=== PATIENT | female | born 1985 | race Caucasian/White ===

== ENCOUNTER 2017-06-11 11:42 | Emergency (ER) | payer BC ==
[2017-02-12 09:25] VITALS: BMI 41.4
--- NOTE | 2017-06-11 17:22 | OBHP ---
Datetime: 06/11/2017 12:49 IP Adm Impression: , intrauterine ; No Active Labor IP Chief Complaint Other: Passed mucous plug IP Admit Plan: Discharge home Admit Comment, IP Provider: 31 y.o , LMP 10/30/16, ARIELA 08/06/17, EGA 32 weeks, presents for silva luationof possibly passing mucous plug. Noticed "bugga" at approximately 0845 hours. "I felt relief a fter" - low back pain; slight increase in vaginal/pelvic pressusre. Had sexual intercourse last night . (+) AFM; denies LOF (clear), VB, Ctx. care: Dr. Mag Byrne: per patient, unremarkable to date, yet has been having serial ultrasounds - doesn't know why. 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 No h/o intubations or ICU admissions. PSH: denies NKDA Meds: PNV - QD; proventil inhaler, as needed Soc Hx: denies tobacco, illicit drug or EtOH use. x 3 years; lives with and son. 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 Fam Hx: Mother alive 56 - HTN. Father alive 60 - DM. P.E.: as above. Midly obese, in NAD. Awake, alert, oriented to time, person and place. Pleasant a nd cooperative. Accompanied by her mother Assessment: 31 y.o. P1, 32 weeks. No evidenc of ROM. It was explained to patient, there is no def initive way to confirm or refute the passing of her mucous plug. It is not uncommon after the passing of same one goes into labor within 1 to 2 weeks, on the average. To this end, patient counseled to p ay particular attention to any signs of PTL; especially re: distinguishing between Ctx and move ment. When in doubt, come in for evaluation. It was also discussed, the excessive vaginal discharge she experienced could have been a mixture of her 's seminal and her vaginal fluids. Patient e xpressed an understanding; no further concerns or questions were raised. Plan: 1) Discharge home 2) Consider abstaining from sexual intercourse until 37+ weeks 3) Keep appointment, 06/23 17 4) Reviewed S/S PTL 5) Continue PNV - as per, and discusssed with, Dr. Byrne. Pelvic Type - PN: Adequate Extremities - PN: Normal Abdomen - PN: Normal Back - PN: Normal Breast - PN: Not Done Lungs - PN: Normal Heart - PN: Normal Thyroid - PN: Not Done Neurologic - PN: Normal HEENT - PN: Normal General - PN: Normal FHR - Baseline A Provider: 130 Contraction Comments Provider: none Comments, ACOG Physical Exam: Abdomen: Gravid. Soft. Non tender in all quadrants Perineum: dry Spec: pasty white, particulate vaginal discharge. No pooling; nitrazine negative. No odor. No ble eding. No mucoid discharge appreciated All other systems reviewed and are negative Gestation - Est Wks by US: 32.0 EGA AdmitDate IP: 32.0 IP Chief Complaint: Other NICHD Variability Prov Fetus A: Moderate 6-25bpm NICHD Accel Fetus A IP Provider: [id number] FHR Category Provider Fetus A: Category I NICHD Decel Fetus A IP Provider: None Dilatation, Provider: 0 Effacement, Provider: 0 Station, Provider: high Genitourinary Exam: Normal DTRs - PN: Not Done
[2017-06-11 19:13] VITALS: BP 112/69; PULSE 82; RESP 20; TEMP 97.6; O2SAT 96
== END 2017-06-11 13:05 | disposition home or self-care (01) ==
LOC: C.EROB 11:42
DX: O26.893 Other specified pregnancy related conditions, third trimester (principal); Z3A.32 32 weeks gestation of pregnancy

== ENCOUNTER 2017-07-16 15:32 | Emergency (ER) | payer BC ==
[2017-07-16 17:08] VITALS: BMI 40.9
--- NOTE | 2017-07-16 17:24 | OBHP ---
Datetime: 07/16/2017 17:20 IP Adm Impression: Term, intrauterine IP Chief Complaint Other: nst/bb IP Admit Plan: Discharge home Admit Comment, IP Provider: at 37weeks for nst/bpp due to dec fh in office, no ctxs, vb, lof+fm . obhx 1 x pmh den med pnv all nkda psh de soch de nst 130 mod mercedes slime bpp 10/29 a/p at 37weeks nst/bb dc home labor given po hy call pmd to make an appointment Pelvic Type - PN: Adequate Extremities - PN: Normal Abdomen - PN: Normal Back - PN: Normal Breast - PN: Normal Lungs - PN: Normal Heart - PN: Normal Thyroid - PN: Normal Neurologic - PN: Normal HEENT - PN: Normal General - PN: Normal FHR - Baseline A Provider: 120 Contraction Comments Provider: none Vital Signs Provider: Reviewed; Within Normal Limits NICHD Variability Prov Fetus A: Moderate 6-25bpm NICHD Accel Fetus A IP Provider: [id number] FHR Category Provider Fetus A: Category I Genitourinary Exam: Normal DTRs - PN: Normal Datetime: 06/11/2017 12:49 EGA AdmitDate IP: 32.0
--- NOTE | 2017-07-16 17:25 | US ---
PROCEDURE: OB Pelvic Ultrasound HISTORY: LMP: 10/30/2016 COMPARISON: None available. FINDINGS: UTERUS: There is a single intrauterine live with ultrasound estimated gestational age of 37 weeks. Heart rate: 123 bpm. age (Ultrasound estimated): 37 weeks 4 days 2 weeks 4 days Amniotic Fluid index: 14.07 centimeter Date of delivery (Ultrasound estimated) : 08/02/2017. Estimated weight by ultrasound is 3263 gram 489.4 gram. Biophysical profile: Biophysical profile is 8 of 8 with 2 for the breathing, 2 for the body movement and 2 for the tone and 2 for the amniotic fluid. Placenta it is noted at the anterior fundal wall. . CERVIX: Measures 3.6 cm. Long and closed. No cervical abnormality seen. RIGHT OVARY: Was not visualized. LEFT OVARY: Was not visualized. FREE FLUID: None. OTHER FINDINGS: None. IMPRESSION: Single intrauterine live noted in cephalic presentation at the time of this study. The ultrasound estimated gestational age is 37 weeks 4 days 2 weeks 4 days. Estimated date of delivery by ultrasound is 08/02/2017. Biophysical profile is 8 of 8. Irregular heartbeat is noted during the exam.
--- NOTE | 2017-07-16 17:27 | OBDCSUM ---
Datetime: 07/16/2017 17:23 Discharged to, Provider: Home Follow up at, Provider: Dr. Byrne Disch Instr Activity: Normal activity Disch Instr Diet: Regular Discharge Time: 07/16/2017 17:24 Follow up in weeks, Provider: call Dr. Byrne's office to schedule follow up visit Disch Referrals: None Discharge Comment, Provider: carola home labor given po hy call pmd to make an appointment Discharge Diagnosis Prov Other: nst/bpp 37wee
[2017-07-16 21:37] VITALS: BP 101/71; PULSE 87; O2SAT 97
== END 2017-07-16 17:30 | disposition home or self-care (01) ==
LOC: C.EROB 15:32
DX: Z36.89 Encounter for other specified antenatal screening (principal)

== ENCOUNTER 2017-07-24 06:55 | Inpatient (IN) | payer BC ==
[2017-07-24] MEDS ORDERED: Lactated Ringer's 1,000 ML IV SCH (07:45)
--- NOTE | 2017-07-24 07:45 | OBHP ---
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, fibroids, ovarian cyst, , sti PMH: denies PSH: denies FHX: non contriutory SHX: negative etoh/tobacco/drugs MEDS: pnv NKDA A/P @ 38.1 wks GA in labor -admit to L+D -npo, ivf -admission labs -cont tooc adn efm -analgesia Pelvic Type - PN: Adequate Extremities - PN: Normal Abdomen - PN: Normal Back - PN: Normal Breast - PN: Normal Lungs - PN: Normal Heart - PN: Normal Thyroid - PN: Normal Neurologic - PN: Normal HEENT - PN: Normal General - PN: Normal Presentation-Admit: Vertex FHR - Baseline A Provider: 125 Membranes, Provider: Intact Contraction Comments Provider: q 8 min Gestation - Est Wks by US: 38.1 IP Hx Assessment: The History has been Reviewed and is Current EGA AdmitDate IP: 38.1 Vital Signs Provider: Reviewed; Within Normal Limits IP Chief Complaint: Uterine contractions NICHD Variability Prov Fetus A: Moderate 6-25bpm FHR Category Provider Fetus A: Category I NICHD Decel Fetus A IP Provider: None Dilatation, Provider: 3-4 Effacement, Provider: 30 Station, Provider: -3 Genitourinary Exam: Normal DTRs - PN: Normal
--- NOTE | 2017-07-24 07:59 | OBADHP ---
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, fibroids, ovarian cyst, , sti PMH: denies PSH: denies FHX: non contriutory SHX: negative etoh/tobacco/drugs MEDS: pnv NKDA A/P @ 38.1 wks GA in labor -admit to L+D -npo, ivf -admission labs -cont tooc adn efm -analgesia Pelvic Type - PN: Adequate Extremities - PN: Normal Abdomen - PN: Normal Back - PN: Normal Breast - PN: Normal Lungs - PN: Normal Heart - PN: Normal Thyroid - PN: Normal Neurologic - PN: Normal HEENT - PN: Normal General - PN: Normal Presentation-Admit: Vertex FHR - Baseline A Provider: 125 Membranes, Provider: Intact Contraction Comments Provider: q 8 min Gestation - Est Wks by US: 38.1 IP Hx Assessment: The History has been Reviewed and is Current Vital Signs Provider: Reviewed; Within Normal Limits IP Chief Complaint: Uterine contractions NICHD Variability Prov Fetus A: Moderate 6-25bpm FHR Category Provider Fetus A: Category I NICHD Decel Fetus A IP Provider: None Dilatation, Provider: 3-4 Effacement, Provider: 30 Station, Provider: -3 Genitourinary Exam: Normal DTRs - PN: Normal EGA AdmitDate IP: 38.1 IP Adm Impression: Term, intrauterine IP Admit Plan: Admit to unit Datetime: 07/16/2017 17:20 IP Chief Complaint Other: nst/bb NICHD Accel Fetus A IP Provider: [id number] Datetime: 06/11/2017 12:49 Comments, ACOG Physical Exam: Abdomen: Gravid. Soft. Non tender in all quadrants Perineum: dry Spec: pasty white, particulate vaginal discharge. No pooling; nitrazine negative. No odor. No ble eding. No mucoid discharge appreciated All other systems reviewed and are negative
[2017-07-24] MEDS ORDERED: Penicillin G 5 Million Unit Vial IVPB ONE (08:00)
[2017-07-24 08:31] LABS: BASO % 0.5 % (0.0-2.0); EOS # 0.1 K/uL (0.0-0.7); HEMOGLOBIN 12.8 g/dL (11.0-16.0); LYMPH # 1.6 K/uL (1.0-4.3); LYMPH % 16.6 % (20.0-40.0); MEAN CELL VOLUME 86.9 fL (81.0-99.0); MEAN CORPUSCULAR HEMOGLOBIN 29.9 pg (27.0-31.0); MEAN CORPUSCULAR HGB CONC 34.4 g/dL (33.0-37.0); MEAN PLATELET VOLUME 8.6 fL (7.2-11.7); MONO # 0.5 K/uL (0.0-0.8); MONO % 5.8 % (0.0-10.0); NEUT # 7.2 K/uL (1.8-7.0); NEUT % 76.1 % (50.0-75.0); NRBC % 0.1 % (0.0-2.0); RBC 4.29 Mil/uL (3.80-5.20); RED CELL DISTRIBUTION WIDTH 13.3 % (11.5-14.5); WHITE BLOOD COUNT 9.5 K/uL (4.8-10.8)
[2017-07-24 08:55] LABS: SQUAMOUS EPITHIAL 2 /hpf (0-5); URINE BILIRUBIN NEGATIVE (NEGATIVE); URINE BLOOD 1+ (NEGATIVE); URINE CLARITY Clear (Clear); URINE COLOR Yellow (YELLOW); URINE GLUCOSE (UA) NORMAL (Normal); URINE LEUKOCYTE ESTERASE NEG Leu/uL (Negative); URINE PROTEIN NEGATIVE (NEGATIVE); URINE UROBILINOGEN NORMAL mg/dL (0.2-1.0)
[2017-07-24 09:38] LABS: ALB/GLOB RATIO 1.1 (1.0-2.1); ALBUMIN 3.5 g/dL (3.5-5.0); ALT/SGPT 10 U/L (9-52); AST/SGOT 28 U/L (14-36); BLOOD UREA NITROGEN 15 mg/dL (7-17); CALCIUM 9.4 mg/dl (8.6-10.4); GFR AFRICAN-AMERICAN > 60; GFR NON-AFRICAN AMERICAN > 60; HEPATITIS B SURFACE AG Negative (NEGATIVE)
[2017-07-24] MEDS ORDERED: Oxytocin 30 UNIT 30 UNITS/500 ML BAG IV ONE (11:25)
[2017-07-24] MEDS ORDERED: Oxytocin 30 UNIT 30 UNITS/500 ML BAG IV SCH (11:30)
[2017-07-24] MEDS ORDERED: Fentanyl/Bupivacaine HCl 250 ML EPI ONE (13:17)
[2017-07-24] MEDS ORDERED: Bupivacaine HCl 0.25% PF (30 ml) Inj ONE (13:17)
[2017-07-24] MEDS ORDERED: ceFAZolin IV 2 gm in Dextrose 2 GM/50 ML BAG IVPB ONE (19:48)
[2017-07-24] MEDS ORDERED: ceFAZolin 1 gm in NS 2 GM/200 ML BAG IVPB ONE (19:50)
[2017-07-24] MEDS ORDERED: Oxycodone/Acetaminophen 5/325 mg Tab PO PRN ×2 (20:21→20:33)
--- NOTE | 2017-07-24 20:30 | OBPN ---
Datetime: 07/24/2017 19:26 IP Progress Impression: Normal progression of labor IP Procedures: Artificial ROM IP Progress Plan: Continue present management Membranes, Provider: Ruptured Amniotic Fluid Color, Provider: Clear Contraction Comments Provider: 3 FHR - Baseline A Provider: 130 IP Progress Note Comment: @ 38.1 wks GA admitted for labor with nromal progessin augmented with cytotec followe by pitocin followed by AROM, shortly after cat II drackign not imtpoving, bedside so no conssitent with ehart rate abnroalties despeit dc pitoicn, oxygen, left latreal. pt transpro navid to OR. VE 10/100/0 and heart rate improved with decles, consent tiven for Right mediolater and va cumn delivery FHR Category Provider Fetus A: Category I NICHD Variability Prov Fetus A: Moderate 6-25bpm Dilatation, Provider: 7 NICHD Decel Fetus A IP Provider: None Datetime: 07/24/2017 07:39 Gestation - Est Wks by US: 38.1 Presentation-Admit: Vertex Vital Signs Provider: Reviewed; Within Normal Limits Effacement, Provider: 30 Station, Provider: -3 Datetime: 07/16/2017 17:20 NICHD Accel Fetus A IP Provider: [id number]
--- NOTE | 2017-07-24 20:32 | OBDS ---
DELIVERY PERSONNEL Delivery Doctor: Ashley Byrne MD Scrub Nurse: Cecilia Balbuena Ct Scan Special Procedures Technologist: Mildred Wolf RN Anesthesiologist: MATERNAL INFORMATION Delivery Anesthesia: Epidural Medications in Delivery: Pitocin 20units IV in 1000LR; Methergine 0.2 mg IM by Estimated Blood Loss (ml): 500 Placenta Cultured: Yes Maternal Complications: None Provider Comments: pt with category II tracing 8cm, transported to OR , reexamiend . pt was pushign, verbal consent given for right mediolasteral epistomy, adn vaucm . vacumn applied, no cervi x, on sagitall suture, 1 pull, head delivered in OP presentation, no nuchal cord noted, aturamti, rn managed care netaou delivey rof anterio follwoed by marv ojeda followed by zakia rof body. both oral and nsal passages of baby bulb suctined. ubmicls cord clamped adn cut. baby handed to awaiting pediatrici an. cord blodoa dn cord gases colelcted and sent x 2. spontaenous delivery of intact placenta wtih me mbrnes. fundus firm, lower uteiren segememe boggy. biman massage, pitocn given, massage contined, met hergine IM x 1 givne. good hemostais. right mediolateral epistormy repaired with 2-0 adn 3-0 chormic , Good hemostaiion. no compliatin live male infant agpar 9,9 weight of 7lbs 8ounces ebl 500 ml LABOR SUMMARY EDC: 08/06/2017 00:00 No. Babies in Womb: 1 Attempted: No Labor Anesthesia: Epidural LABOR INFORMATION Reason for Induction: Not Applicable Cervical Ripening Agents: Cytotec @ Oxytocin: Augmentation Group B Beta Strep: Positive (Annotations: 07/16/17) Antibiotics # of Doses: 3 Antibiotics Time of Last Dose: Pen G 2.5 MU IV @ 1610 Steroids Given: None Reason Steroids Not Administered: Not Applicable MEMBRANES Membranes Rupture Method: Artificial Rupture of Membranes: 07/24/2017 18:09 Length of Rupture (hrs): -10.67 Amniotic Fluid Color: Clear Amniotic Fluid Amount: Small Amniotic Fluid Odor: Normal STAGES OF LABOR Stage 3 hrs: 12 Stage 3 min: 4 VAGINAL DELIVERY Episiotomy: Right Mediolateral Laceration Extension: N/A Laceration Type: None Laceration Repair: Yes Laceration Repair Note: right mediolateral episotimy repaired Initial Vag Sponge Count: 25 Final Vag Sponge Count: 25 Initial Vag Sharps Count: 4 Final Vag Sharps Count: 4 Sponge Count Correct: Yes; Vaginal Sweep Performed Sharps Count Correct: Yes Count Comment: count with Dr. Byrne, Cecilia Balbuena, and Jesusita Hoover RN BABY A INFORMATION Delivery Date/Time: 07/24/2017 07:29 Method of Delivery: Vaginal Born in Route : No : N/A Forceps: N/A Vacuum Extraction: Successful Shoulder Dystocia : No ASSISTED DELIVERY BABY A Indication for Assisted Delivery: Non reassuring tracing Catheter Prior to Procedure: Patient on catheter Station Vacuum/Forcep Apply: +3 Position Vacuum/Forcep Apply: Direct Occipital Posterior Vacuum Number of Pulls: 1 Vacuum Number of PopOffs: 0 Vacuum Maximum Pressure Obtained: 40hg/cm Reduce Pressure btwn Ctx: No Vacuum Curriculum Development Manager: [place] II M style Mushroom Vaccuum Assist(MityVac) Total Time Vacuum Applied: 7 seconds SHOULDER DYSTOCIA BABY A Infant Delivery Date/Time: 07/24/2017 07:29 PRESENTATION/POSITION BABY A Presentation: Cephalic Cephalic Presentation: Vertex Vertex Position: Direct OP Breech Presentation: N/A PLACENTA INFORMATION BABY A Placenta Delivery Time : 07/24/2017 19:33 Placenta Method of Delivery: Spontaneous Placenta Status: Delivered SCORES BABY A Heart Rate 1 min: >100 bpm Resp Effort 1 min: Good Cry Reflex Irritability 1 min: Cough or Sneeze or Pulls Away Muscle Tone 1 min: Active Motion Color 1 min: Body [place], Extremities Blue Resuscitation Effort 1 min: N/A SCORE 1 MIN: 9 Heart Rate 5 min: >100 bpm Resp Effort 5 min: Good Cry Reflex Irritability 5 min: Cough or Sneeze or Pulls Away Muscle Tone 5 min: Active Motion Color 5 min: Body [place], Extremities Blue Resuscitation Effort 5 min: N/A SCORE 5 MIN: 9 INFANT INFORMATION BABY A Gestational Age at Delivery: 38.1 Gestational Status: Term Infant Outcome : Liveborn Infant Condition : Stable Infant Sex: Male IDENTIFICATION/MEDS BABY A ID Band Number: [id number] ID Band Location: Left Leg; Left Arm Sensor Applied: Yes Sensor Number: [id number] Sensor Location : Cord Clamp Vitamin K Given : Not Given Erythromycin Given: Not Given WEIGHT/LENGTH BABY A Infant Birthweight (gms): 3390 Weight (lb): 7 Weight (oz): 8 Infant Length Inches: 20.00 Infant Length cms: 50.8 CORD INFORMATION BABY A No. Cord Vessels: 3 Nuchal Cord : N/A Cord Blood Taken: Yes Infant Suction: Mouth; Nose ASSESSMENT BABY A Infant Complications: None Physical Findings at Delivery: Molding of the Head Respirations: Appears Normal Devil Tender/ALS Called : Yes Infant Care By: present at delivery Transferred To: Nursery
[2017-07-24 22:24] LABS: BASO # 0.1 K/uL (0.0-0.2); BASO % 0.5 % (0.0-2.0); EOS % 0.1 % (0.0-4.0); HEMOGLOBIN 11.7 g/dL (11.0-16.0); LYMPH # 0.6 K/uL (1.0-4.3); LYMPH % 3.1 % (20.0-40.0); MEAN CELL VOLUME 85.6 fL (81.0-99.0); MEAN CORPUSCULAR HEMOGLOBIN 28.8 pg (27.0-31.0); MEAN CORPUSCULAR HGB CONC 33.7 g/dL (33.0-37.0); MONO # 1.1 K/uL (0.0-0.8); MONO % 5.3 % (0.0-10.0); NEUT # 18.3 K/uL (1.8-7.0); PLATELET COUNT 181 K/uL (130-400); RBC 4.05 Mil/uL (3.80-5.20); RED CELL DISTRIBUTION WIDTH 13.2 % (11.5-14.5)
[2017-07-24 22:28] LABS: WHITE BLOOD COUNT 20.2 K/uL (4.8-10.8)
[2017-07-24 23:11] LABS: BANDS 2 % (0-2); EOSINOPHIL 1 % (0-4); LYMPHOCYTE 3 % (20-40); MONOCYTE 5 % (0-10); NEUTROPHIL 89 % (50-75); PLATELET ESTIMATE NORMAL (NORMAL); TOTAL CELLS COUNTED 100
[2017-07-24 23:12] LABS: ANISOCYTOSIS SLIGHT; HYPOCHROMIC SLIGHT; POIKILOCYTOSIS SLIGHT
[2017-07-25] MEDS: ceFAZolin 1 GM in Sodium Chloride 0.9% 100 ML IVPB SCH ×2 (03:21→11:11)
--- NOTE | 2017-07-25 06:53 | OBPPN ---
Datetime: 07/25/2017 06:44 PP Pain Prov: Within normal limits PP Nausea Prov: Denies PP Flatus Prov: Yes PP BM Prov: No PP Breasts Prov: Normal PP Heart Prov: Normal PP Lungs Prov: Normal PP Abdomen/Uterus Prov: Normal PP Lochia Prov: Normal PP Vulva/Perineum Prov: Normal PP CVA Tenderness Prov: Normal PP Extremities Prov: Normal PP C/S Incision Prov: Not Applicable PP Progress Prov: Normal PP Impression Prov: Normal progression PP Plan Prov: Continue present management PP Progress Note Prov: Pt seen and examiend and reporst pain controled with motrin. pt ambuaitng to bathroom, urinating without difficut, breast feeding,d herbert any heavy bleeding, fever, chils, naseu v omitng, cp, osb, lightheadness VSS PE GEN NAD AA Ox 3 RESP: CTAB?l CVS: RRR< +S1/S2 BREAST: Non tendner, non engourged b/ ABD: sofrt, NT, ND FUDUS: Firm, at levle of umbics VE: minaml lochia, non foul semlling EXT: no calft tendnress, negartive homans sign a/p s/p SNVD PPD #1 -pain manamgnet -f/u am cbc -necouarbe mabutin, and breast feeding IP PP Procedures: None Vital Signs Provider PP: Reviewed; Within Normal Limits
[2017-07-25 08:34] LABS: BASO # 0.1 K/uL (0.0-0.2); BASO % 0.3 % (0.0-2.0); EOS % 0.3 % (0.0-4.0); HEMOGLOBIN 10.5 g/dL (11.0-16.0); LYMPH # 1.2 K/uL (1.0-4.3); LYMPH % 7.7 % (20.0-40.0); MEAN CELL VOLUME 85.9 fL (81.0-99.0); MEAN CORPUSCULAR HEMOGLOBIN 29.2 pg (27.0-31.0); MEAN PLATELET VOLUME 8.4 fL (7.2-11.7); MONO % 5.9 % (0.0-10.0); NEUT # 13.8 K/uL (1.8-7.0); NEUT % 85.8 % (50.0-75.0); PLATELET COUNT 180 K/uL (130-400); RBC 3.61 Mil/uL (3.80-5.20); RED CELL DISTRIBUTION WIDTH 13.4 % (11.5-14.5); WHITE BLOOD COUNT 16.1 K/uL (4.8-10.8)
[2017-07-25 09:14] LABS: BASOPHIL 1 % (0-2); LYMPHOCYTE 8 % (20-40); MONOCYTE 5 % (0-10); NEUTROPHIL 86 % (50-75); TOTAL CELLS COUNTED 100
[2017-07-25 09:15] LABS: ANISOCYTOSIS SLIGHT; BURR CELLS SLIGHT; HYPOCHROMIC SLIGHT; PLATELET ESTIMATE NORMAL (NORMAL); POIKILOCYTOSIS SLIGHT; TARGET CELLS SLIGHT
[2017-07-25 09:17] VITALS: O2SAT 98
[2017-07-25] MEDS ORDERED: Benzocaine/Menthol 20%-0.5% Topical Spray (60 ml) EXT PRN (12:00)
--- NOTE | 2017-07-26 07:50 | OBDCSUM ---
Datetime: 07/26/2017 07:48 Discharged to, Provider: Home Follow up at, Provider: Dr Byrne Disch Instr Activity: Normal activity Disch Instr Diet: Regular Discharge Instructions, Provider: Routine instructions given Discharge Diagnosis, Provider: Term Delivered Discharge Time: 07/26/2017 15:00 Follow up in weeks, Provider: 6 weeks Disch Referrals: None Contraception discussed, Prov: Yes Disch Activity Restrictions: No sexual activity; Nothing in vagina - [place], tampons, douche
--- NOTE | 2017-07-26 07:50 | OBPPN ---
Datetime: 07/26/2017 07:47 PP Pain Prov: Within normal limits PP Nausea Prov: Present PP Flatus Prov: Yes PP Breasts Prov: Normal PP Heart Prov: Normal PP Lungs Prov: Normal PP Abdomen/Uterus Prov: Normal PP Lochia Prov: Normal PP Vulva/Perineum Prov: Normal PP CVA Tenderness Prov: Normal PP Extremities Prov: Normal PP C/S Incision Prov: Not Applicable PP Progress Prov: Normal PP Impression Prov: Normal progression PP Plan Prov: Continue present management PP Progress Note Prov: pt seen and examiend c/o vomitign x 2, non bloody non billous with lower abod atiya crampign that come and goes not alleviated with medicain. pt abmautnf, voiding, passing flatus, and breast feedig, dneis any fever, chills, diarrhea VSS PE see above A/P s/p PPD #2 with vomiting -labs -clear liquids advsnce as tolerated -pain mangment -necourage bresat feedign and ambaition Vital Signs Provider PP: Reviewed; Within Normal Limits
[2017-07-26 08:39] VITALS: BP 110/79; PULSE 98; RESP 18
[2017-07-26 13:46] LABS: BASO # 0.1 K/uL (0.0-0.2); BASO % 0.4 % (0.0-2.0); EOS # 0.1 K/uL (0.0-0.7); HEMOGLOBIN 10.1 g/dL (11.0-16.0); LYMPH # 1.9 K/uL (1.0-4.3); LYMPH % 14.4 % (20.0-40.0); MEAN CELL VOLUME 87.6 fL (81.0-99.0); MEAN CORPUSCULAR HEMOGLOBIN 29.9 pg (27.0-31.0); MEAN CORPUSCULAR HGB CONC 34.2 g/dL (33.0-37.0); MEAN PLATELET VOLUME 8.4 fL (7.2-11.7); MONO # 0.9 K/uL (0.0-0.8); MONO % 6.4 % (0.0-10.0); NEUT # 10.5 K/uL (1.8-7.0); NEUT % 77.8 % (50.0-75.0); NRBC % 0.1 % (0.0-2.0); RBC 3.39 Mil/uL (3.80-5.20); RED CELL DISTRIBUTION WIDTH 13.3 % (11.5-14.5); WHITE BLOOD COUNT 13.5 K/uL (4.8-10.8)
[2017-07-26 19:51] VITALS: TEMP 98
== END 2017-07-26 15:51 | disposition home or self-care (01) | DRG 774 ==
LOC: C.EROB 06:55 → C.4D 07:44 → C.4M 21:38
PROVIDERS: ADMIT Obstetrics & Gynecology; ATTEND Obstetrics & Gynecology
PROC: 10D07Z6 Extraction of Products of Conception, Vacuum, Via Natural or Artificial Opening (ICD-10-PCS; principal; 2017-07-24)
PROC: 10907ZC Drainage of Amniotic Fluid, Therapeutic from Products of Conception, Via Natural or Artificial Opening (ICD-10-PCS; 2017-07-24)
PROC: 0W8NXZZ Division of Female Perineum, External Approach (ICD-10-PCS; 2017-07-24)
PROC: 3E0P7VZ Introduction of Hormone into Female Reproductive, Via Natural or Artificial Opening (ICD-10-PCS; 2017-07-24)
PROC: 0HQ9XZZ Repair Perineum Skin, External Approach (ICD-10-PCS; 2017-07-24)
DX: O75.89 Other specified complications of labor and delivery (principal); O98.82 Other maternal infectious and parasitic diseases complicating childbirth; Z37.0 Single live birth; J45.909 Unspecified asthma, uncomplicated; Z3A.38 38 weeks gestation of pregnancy; N89.8 Other specified noninflammatory disorders of vagina; B95.1 Streptococcus, group B, as the cause of diseases classified elsewhere